=== PATIENT | female | born 1990 | race Two or more races ===

== ENCOUNTER 2018-01-03 04:10 | Inpatient (IN) | payer MEDICAID ==
[~2018-01-03] VITALS: Ht 167.6 cm; Wt 80.0 kg
[2018-01-03 04:55] LABS: BASOPHILS % (AUTO) 0.2 % (0-1); EOSINOPHILS # (AUTO) 0.1 X10'3 (0-0.9); EOSINOPHILS % (AUTO) 0.9 % (0-6); HEMATOCRIT 39.9 % (35.0-45.0); HEMOGLOBIN 13.1 g/dl (12.0-16.0); LYMPHOCYTES # (AUTO) 1.2 X10'3 (1.1-4.8); MEAN CORPUSCULAR HEMOGLOBIN 28.4 PG (27.0-31.0); MEAN CORPUSCULAR HGB CONC 32.8 % (33.0-36.5); MEAN CORPUSCULAR VOLUME 86.6 FL (78-98); MEAN PLATELET VOLUME 11.9 FL (7.4-10.4); MONOCYTES # (AUTO) 0.3 X10'3 (0-0.9); MONOCYTES % (AUTO) 3.4 % (2-12); NEUTROPHILS # (AUTO) 7.4 X10'3 (1.8-7.7); NEUTROPHILS % (AUTO) 82.5 % (42-75); PLATELET COUNT 279 X10'3 (140-440); RED CELL DISTRIBUTION WIDTH 16.8 % (11.5-14.5); WHITE BLOOD COUNT 8.9 X10'3 (4.5-11.0)
[2018-01-03] MEDS ORDERED: normal saline 1000ML IV soln IVB ONE (05:10)
[2018-01-03] MEDS ORDERED: morphine 4 MG/ML inj SYRINge IV ONE (05:10)
[2018-01-03] MEDS ORDERED: ketorolac tromethamine 15mg/ml inj. IV ONE (05:10)
[2018-01-03] MEDS ORDERED: metoclopramide 5 mg/ml inj IV ONE (05:10)
[2018-01-03] MEDS ORDERED: haloperidol lactate 5mg/ml inj IM ONE (05:10)
[2018-01-03 05:11] LABS: ALANINE AMINOTRANSFERASE 17 U/L (12-78); ALBUMIN 4.2 G/DL (3.4-5.0); ALKALINE PHOSPHATASE 118 IU/L (46-116); ANION GAP 23 (8-16); ASPARTATE AMINO TRANSFERASE 13 U/L (10-37); BILIRUBIN,TOTAL 0.6 MG/DL (0.1-1.0); BLOOD UREA NITROGEN 13 MG/DL (7-18); BUN/CREATININE RATIO 15.9 (6.6-38.0); CALCIUM 9.1 MG/DL (8.5-10.1); CHLORIDE 97 MMOL/L (99-107); CREATININE 0.82 MG/DL (0.40-0.90); ETHANOL < 0.010 GM/DL (0.0-0.010); GLUCOSE 359 MG/DL (70-104); INR 1.2 INR; LIPASE 71 U/L (73-393); MAGNESIUM 1.8 MG/DL (1.5-2.4); POTASSIUM 3.2 MMOL/L (3.5-5.1); PROTHROMBIN TIME 11.9 SECONDS (9.0-12.0); SODIUM 135 MMOL/L (135-145); TOTAL PROTEIN 8.5 G/DL (6.4-8.2); eGFR 84 ML/MIN
[2018-01-03 05:14] LABS: TOTAL CARBON DIOXIDE 14.6 MMOL/L (24-32)
[2018-01-03 05:23] LABS: URINE HCG NEGATIVE (NEG)
[2018-01-03 05:29] LABS: CLARITY,URINE CLEAR (Clear); COLOR,URINE YELLOW (Yellow); GLUCOSE, URINE 500 mg/dl (Neg); KETONES,URINE >=80 mg/dl (Neg); LEUKOCYTE ESTERASE ,URINE NEGATIVE (Neg); NITRITES, URINE NEGATIVE (Neg); OCCULT BLOOD,URINE NEGATIVE (Neg); PROTEIN,URINE TRACE mg/dl (Neg); UROBILINOGEN,URINE 0.2 E.U/dL (0.2-1.0)
[2018-01-03 05:34] LABS: UA COLLECTION TYPE CLN CATCH MIDSTREAM
[2018-01-03 05:35] LABS: BACTERIA,URINE FEW /HPF (Neg); RBC,URINE 0-2 /HPF (0-2); SQUAMOUS EPITHELIAL CELL,UR FEW /LPF (FEW); WBC,URINE 0-4 /HPF (0-4); YEAST FEW /HPF (NEGATIVE)
[2018-01-03 05:42] LABS: URINE AMPHETAMINE SCREEN NEGATIVE (Neg); URINE BARBITUATE SCREEN NEGATIVE (Neg); URINE BENZODIAZEPINES SCREEN NEGATIVE (Neg); URINE CANNABINOID SCREEN POSITIVE (Neg); URINE COCAINE SCREEN NEGATIVE (Neg); URINE METHADONE SCREEN NEGATIVE (Neg); URINE OPIATE SCREEN NEGATIVE (Neg); URINE PHENCYCLIDINE SCREEN NEGATIVE (Neg)
[2018-01-03] MEDS ORDERED: insulin regular, human 100 UNIT in normal saline 100ml IV soln 100 ML IV PRN ×2 (05:45)
[2018-01-03] MEDS ORDERED: insulin R INFUSION 1 ML IV ONE (05:57)
[2018-01-03] MEDS ORDERED: diphenhydrAMINE 50 mg/ml inj IV ONE (06:00)
[2018-01-03] MEDS ORDERED: potassium Cl 10 mEq/100mL bag IV ONE ×3 (06:00→07:00)
[2018-01-03 06:06] LABS: ABG BASE EXCESS -10.6 mmol/L (-2.0-3.0); ABG HCO3 11.5 mmol/L (22.0-26.0); ABG PCO2 (T) 18.4 mmHg (32.0-45.0); ABG PH (T) 7.414 (7.350-7.450); FCOHb 0.7 % (0.5-1.5); FMetHb 0.1 % (0.3-1.12); FO2Hb 97.2 % (94-100); PATIENT TEMPERATURE 37.3; TOTAL HEMOGLOBIN 12.3 G/dl (12.0-16.0)
[2018-01-03] MEDS ORDERED: normal saline 1000ml 1,000 ML IV SCH ×2 (06:07→06:17)
[2018-01-03] MEDS ORDERED: magnesium hydroxide 30ml (MOM) UD suspension PO PRN (06:10)
[2018-01-03] MEDS ORDERED: mag hydrox/Alum hydrox/simeth 30ml oral suspension PO PRN (06:10)
[2018-01-03] MEDS ORDERED: diphenhydrAMINE 25mg capsule PO PRN (06:10)
[2018-01-03] MEDS ORDERED: acetaminophen 325mg tablet PO PRN ×2 (06:10)
[2018-01-03] MEDS ORDERED: sodium bicarbonate (8.4%) inj. 50 MEQ in sodium chloride 0.45% 500ml 250 ML IV PRN (06:17)
[2018-01-03] MEDS ORDERED: sodium bicarbonate (8.4%) inj. 100 MEQ in sodium chloride 0.45% 500ml 500 ML IV PRN (06:17)
[2018-01-03] MEDS ORDERED: potassium Cl 20 mEq SR tablet PO PRN (06:20)
[2018-01-03] MEDS ORDERED: sodium phosphate inj. 30 MMOL in dextrose 5%-water 250 ML IV PRN (06:20)
[2018-01-03] MEDS ORDERED: Neutra Phos packet PO PRN (06:20)
[2018-01-03] MEDS ORDERED: potassium Cl 40MEQ/NS 500ml 500 ML IV PRN ×2 (06:20)
[2018-01-03] MEDS ORDERED: sodium phosphate inj. 15 MMOL in dextrose 5%-water 150 ML IV PRN (06:20)
[2018-01-03] MEDS: normal saline 1000ml 1,000 ML IV SCH ×3 (06:35→22:16)
[2018-01-03] MEDS: insulin regular, DKA only 100 UNIT in normal saline 100ml IV soln 99 ML IV SCH ×2 (06:44)
[2018-01-03 07:15] VITALS: BP 123/80
[2018-01-03] MEDS: potassium CL 20mEq in D5-1/2NS 1,000 ML IV PRN ×2 (07:43→18:37)
[2018-01-03] MEDS ORDERED: K and/or MAG REPLACEMENT MC SCH (08:00)
[2018-01-03] MEDS: LORazepam 2 mg/ml vial IV ONE ×2 (08:22→09:23)
[2018-01-03] MEDS: K and/or MAG REPLACEMENT MC SCH (08:25)
[2018-01-03] MEDS: metoclopramide 5 mg/ml inj IV PRN (08:58)
[2018-01-03] MEDS: enoxaparin 40mg/0.4ml syringe SQ SCH (09:02)
[2018-01-03 10:04] LABS: HCG SERUM QL NEGATIVE
[2018-01-03 10:12] LABS: ALBUMIN 3.5 G/DL (3.4-5.0); ANION GAP 16 (8-16); BLOOD UREA NITROGEN 14 MG/DL (7-18); CALCIUM 7.9 MG/DL (8.5-10.1); CHLORIDE 104 MMOL/L (99-107); GLUCOSE 216 MG/DL (70-104); SODIUM 136 MMOL/L (135-145); TOTAL CARBON DIOXIDE 16.3 MMOL/L (24-32); eGFR > 90 ML/MIN
[2018-01-03 11:00] VITALS: BP 108/67
[2018-01-03 15:00] VITALS: BP 139/91
[2018-01-03 15:40] LABS: ALBUMIN 2.9 G/DL (3.4-5.0); ANION GAP 11 (8-16); BLOOD UREA NITROGEN 13 MG/DL (7-18); BUN/CREATININE RATIO 20.6 (6.6-38.0); CALCIUM 7.6 MG/DL (8.5-10.1); CHLORIDE 110 MMOL/L (99-107); CREATININE 0.63 MG/DL (0.40-0.90); GLUCOSE 96 MG/DL (70-104); POTASSIUM 3.3 MMOL/L (3.5-5.1); SODIUM 142 MMOL/L (135-145); TOTAL CARBON DIOXIDE 20.8 MMOL/L (24-32); eGFR > 90 ML/MIN
[2018-01-03] MEDS ORDERED: glucagon, human recombinant 1mg kit SUBCUT PRN (17:50)
[2018-01-03] MEDS ORDERED: dextrose ORAL solution 15 GM/59 ML bottle PO PRN ×2 (17:50)
[2018-01-03] MEDS ORDERED: MESSAGE TO PHARMACY PO ONE (17:50)
[2018-01-03] MEDS ORDERED: dextrose 50%-water 50ml dispensing syringe IV PRN ×2 (17:50)
[2018-01-03] MEDS: potassium Cl 20 mEq SR tablet PO PRN (17:59)
[2018-01-03] MEDS: insulin Lispro (HumaLOG) vial - multi-dose SQ SCH (18:03)
[2018-01-03 19:00] VITALS: BP 128/80
[2018-01-03] MEDS ORDERED: insulin glargine (Lantus) pen - multi-dose SQ SCH (21:00)
[2018-01-03 21:40] LABS: ALANINE AMINOTRANSFERASE 18 U/L (12-78); ALBUMIN 2.7 G/DL (3.4-5.0); ALBUMIN/GLOBULIN RATIO 0.8 (1.1-1.5); ALKALINE PHOSPHATASE 73 IU/L (46-116); ANION GAP 9 (8-16); ASPARTATE AMINO TRANSFERASE 9 U/L (10-37); BILIRUBIN,TOTAL 0.3 MG/DL (0.1-1.0); BLOOD UREA NITROGEN 11 MG/DL (7-18); CALCIUM 7.8 MG/DL (8.5-10.1); CHLORIDE 107 MMOL/L (99-107); CREATININE 0.61 MG/DL (0.40-0.90); GLUCOSE 206 MG/DL (70-104); PHOSPHORUS 2.5 MG/DL (2.3-4.5); POTASSIUM 3.1 MMOL/L (3.5-5.1); SODIUM 137 MMOL/L (135-145); TOTAL CARBON DIOXIDE 21.4 MMOL/L (24-32); TOTAL PROTEIN 5.9 G/DL (6.4-8.2); eGFR > 90 ML/MIN
[2018-01-03] MEDS: nicotine 21mg patch - 24 hr TD SCH (22:22)
[2018-01-03] MEDS: potassium Cl oral solution 20 MEQ/15 ML PO PRN (22:23)
[2018-01-03 23:00] VITALS: BP 124/77
[2018-01-04] MEDS: insulin Lispro (HumaLOG) vial - multi-dose SQ SCH ×3 (00:59→13:05)
[2018-01-04] MEDS: potassium Cl oral solution 20 MEQ/15 ML PO PRN ×2 (01:52→15:49)
[2018-01-04 02:00] VITALS: BP 125/87
[2018-01-04] MEDS: insulin regular, DKA only 100 UNIT in normal saline 100ml IV soln 99 ML IV SCH ×2 (02:17)
[2018-01-04] MEDS: metoclopramide 5 mg/ml inj IV PRN (04:17)
[2018-01-04] MEDS: normal saline 1000ml 1,000 ML IV SCH ×2 (04:54→11:20)
[2018-01-04] MEDS: HYDROmorphone 1 mg/ml syringe IV PRN ×2 (05:17→14:42)
[2018-01-04] MEDS ORDERED: ketorolac tromethamine 15mg/ml inj. IV ONE (05:55)
[2018-01-04 06:51] LABS: BASOPHILS % (AUTO) 0.3 % (0-1); EOSINOPHILS # (AUTO) 0.1 X10'3 (0-0.9); EOSINOPHILS % (AUTO) 2.4 % (0-6); HEMATOCRIT 33.2 % (35.0-45.0); HEMOGLOBIN 10.7 g/dl (12.0-16.0); LYMPHOCYTES # (AUTO) 1.3 X10'3 (1.1-4.8); LYMPHOCYTES % (AUTO) 25.3 % (21-51); MEAN CORPUSCULAR HGB CONC 32.2 % (33.0-36.5); MEAN CORPUSCULAR VOLUME 86.8 FL (78-98); MEAN PLATELET VOLUME 11.8 FL (7.4-10.4); MONOCYTES # (AUTO) 0.3 X10'3 (0-0.9); MONOCYTES % (AUTO) 6.7 % (2-12); NEUTROPHILS # (AUTO) 3.3 X10'3 (1.8-7.7); NEUTROPHILS % (AUTO) 65.3 % (42-75); PLATELET COUNT 194 X10'3 (140-440); RED BLOOD COUNT 3.82 X10'6 (4.20-5.60); RED CELL DISTRIBUTION WIDTH 16.1 % (11.5-14.5); WHITE BLOOD COUNT 5.1 X10'3 (4.5-11.0)
[2018-01-04 07:00] VITALS: BP 147/99
[2018-01-04 07:29] LABS: ALBUMIN 2.9 G/DL (3.4-5.0); ANION GAP 10 (8-16); BLOOD UREA NITROGEN 8 MG/DL (7-18); BUN/CREATININE RATIO 15.4 (6.6-38.0); CALCIUM 7.9 MG/DL (8.5-10.1); CHLORIDE 105 MMOL/L (99-107); CREATININE 0.52 MG/DL (0.40-0.90); GLUCOSE 251 MG/DL (70-104); PHOSPHORUS 2.5 MG/DL (2.3-4.5); POTASSIUM 3.1 MMOL/L (3.5-5.1); SODIUM 136 MMOL/L (135-145); eGFR > 90 ML/MIN
[2018-01-04] MEDS: K and/or MAG REPLACEMENT MC SCH (08:00)
[2018-01-04 08:04] LABS: LARGE PLATELETS FEW; PLATELET ESTIMATE NORMAL
[2018-01-04] MEDS: potassium Cl 20 mEq SR tablet PO PRN (09:36)
[2018-01-04] MEDS: enoxaparin 40mg/0.4ml syringe SQ SCH (09:37)
[2018-01-04] MEDS: nicotine 21mg patch - 24 hr TD SCH (09:37)
[2018-01-04] MEDS ORDERED: pantoprazole 40 MG vial IV ONE (10:30)
[2018-01-04 15:00] VITALS: BP 137/89
[2018-01-05] MEDS ORDERED: pantoprazole 40 MG vial IV SCH (08:00)
[2018-01-05] MEDS ORDERED: HUM100IN (14:55)
[2018-01-05] MEDS ORDERED: RANI150T8 PO (14:55)
[2018-01-05] MEDS ORDERED: ONDA4TAB12 PO (14:55)
[2018-01-05] MEDS ORDERED: INSU100I8 SQ (14:55)
== END 2018-01-04 18:45 | disposition left against medical advice (07) | DRG 420 ==
LOC: ER 04:11 → ED HOLD 06:07 → PCU 3S 07:55
PROVIDERS: ADMIT Internal Medicine; ATTEND Family Medicine
DX: E10.10 Type 1 diabetes mellitus with ketoacidosis without coma (principal); E83.39 Other disorders of phosphorus metabolism; I10 Essential (primary) hypertension; F32.9 Major depressive disorder, single episode, unspecified; F43.10 Post-traumatic stress disorder, unspecified; F17.210 Nicotine dependence, cigarettes, uncomplicated; F12.90 Cannabis use, unspecified, uncomplicated; F41.9 Anxiety disorder, unspecified; K31.89 Other diseases of stomach and duodenum; E87.6 Hypokalemia; L29.9 Pruritus, unspecified; K29.70 Gastritis, unspecified, without bleeding; R11.2 Nausea with vomiting, unspecified; Z98.891 History of uterine scar from previous surgery; Z88.0 Allergy status to penicillin
CPT/HCPCS: 36415; 36600; 74176; 80048; 80053; 80305; 80320; 81001; 81025; 82803; 82948; 83036; 83690; 83735; 84100; 84703; 85018; 85025; 85610; 96372; 96374; 96375; 99285; C9113; J1170; J1200; J1630; J1650; J1815; J1885; J2060; J2270; J2765; J3480; J7030; J7060; Q0163

== ENCOUNTER 2018-01-05 12:47 | Inpatient (IN) | payer MEDICAID ==
[~2018-01-05] VITALS: Ht 167.6 cm; Wt 82.0 kg
[2018-01-05] MEDS ORDERED: metoclopramide 5 mg/ml inj IV ONE (13:25)
[2018-01-05] MEDS ORDERED: normal saline 1000ML IV soln IVB ONE (13:25)
[2018-01-05 13:35] LABS: ALANINE AMINOTRANSFERASE 16 U/L (12-78); ALBUMIN 3.4 G/DL (3.4-5.0); ALKALINE PHOSPHATASE 84 IU/L (46-116); ANION GAP 17 (8-16); ASPARTATE AMINO TRANSFERASE 7 U/L (10-37); BILIRUBIN,TOTAL 0.5 MG/DL (0.1-1.0); BLOOD UREA NITROGEN 7 MG/DL (7-18); BUN/CREATININE RATIO 13.7 (6.6-38.0); CALCIUM 8.6 MG/DL (8.5-10.1); CHLORIDE 100 MMOL/L (99-107); CREATININE 0.51 MG/DL (0.40-0.90); GLUCOSE 257 MG/DL (70-104); SODIUM 139 MMOL/L (135-145); TOTAL CARBON DIOXIDE 21.6 MMOL/L (24-32); TOTAL PROTEIN 6.8 G/DL (6.4-8.2); eGFR > 90 ML/MIN
[2018-01-05 13:36] LABS: POTASSIUM 2.7 MMOL/L (3.5-5.1)
[2018-01-05 13:45] LABS: ABG BASE EXCESS -2.7 mmol/L (-2.0-3.0); ABG HCO3 20.3 mmol/L (22.0-26.0); ABG OXYGEN SATURATION 96.8 % (95-98); ABG PCO2 (T) 29.9 mmHg (32.0-45.0); ABG PO2 (T) 88.9 mmHg (83-108); ALLEN'S TEST Positive; FCOHb 1.8 % (0.5-1.5); FMetHb 0.1 % (0.3-1.12); TOTAL HEMOGLOBIN 11.9 G/dl (12.0-16.0)
[2018-01-05] MEDS ORDERED: potassium Cl 20 mEq SR tablet PO ONE (13:50)
[2018-01-05] MEDS ORDERED: morphine 4 MG/ML inj SYRINge IV ONE (14:05)
[2018-01-05] MEDS: magnesium 1gm/100ml D5W IVPB 100 ML IV SCH ×2 (14:06→15:05)
[2018-01-05] MEDS: potassium 10mEq/100ml NS w/LIDOcaine (10mg/bag) IV SCH ×2 (14:07→17:57)
[2018-01-05] MEDS ORDERED: normal saline 1000ml 1,000 ML IV ONE (14:40)
[2018-01-05] MEDS ORDERED: HUM100IN (14:55)
[2018-01-05] MEDS ORDERED: INSU100I8 SQ (14:55)
[2018-01-05] MEDS ORDERED: RANI150T8 PO (14:55)
[2018-01-05] MEDS ORDERED: ONDA4TAB12 PO (14:55)
[2018-01-05 15:03] LABS: MAGNESIUM 1.8 MG/DL (1.5-2.4); PHOSPHORUS 3.2 MG/DL (2.3-4.5)
[2018-01-05] MEDS ORDERED: mag hydrox/Alum hydrox/simeth 30ml oral suspension PO PRN (15:45)
[2018-01-05] MEDS ORDERED: metoclopramide 5 mg/ml inj IV PRN (15:45)
[2018-01-05] MEDS ORDERED: HYDROcodone/acetaminophen 5mg/325mg tablet PO PRN (15:45)
[2018-01-05] MEDS ORDERED: dextrose 50%-water 50ml dispensing syringe IV PRN ×2 (15:45)
[2018-01-05] MEDS ORDERED: diphenhydrAMINE 50 mg/ml inj IV PRN (15:45)
[2018-01-05] MEDS ORDERED: MESSAGE TO PHARMACY PO ONE (15:45)
[2018-01-05] MEDS ORDERED: HYDROmorphone inj. 0.5 MG/0.5 ML DISP.SYRIN IV PRN ×2 (15:45)
[2018-01-05] MEDS ORDERED: acetaminophen 650mg rectal suppository RC PRN (15:45)
[2018-01-05] MEDS ORDERED: naloxone 0.4 mg/ml inj IV PRN (15:45)
[2018-01-05] MEDS ORDERED: dextrose ORAL solution 15 GM/59 ML bottle PO PRN ×2 (15:45)
[2018-01-05] MEDS ORDERED: magnesium hydroxide 30ml (MOM) UD suspension PO PRN (15:45)
[2018-01-05] MEDS ORDERED: potassium Cl 40MEQ/NS 500ml 500 ML IV PRN (15:45)
[2018-01-05] MEDS ORDERED: potassium Cl 20 mEq SR tablet PO PRN ×2 (15:45)
[2018-01-05] MEDS ORDERED: diphenhydrAMINE 25mg capsule PO PRN (15:45)
[2018-01-05] MEDS ORDERED: bisacodyl 10mg suppository rectal RC PRN (15:45)
[2018-01-05] MEDS ORDERED: CADD PCA waste documentation MC PRN (15:45)
[2018-01-05] MEDS ORDERED: morphine 4 MG/ML inj SYRINge IV PRN (15:45)
[2018-01-05] MEDS ORDERED: glucagon, human recombinant 1mg kit SUBCUT PRN (15:45)
[2018-01-05] MEDS ORDERED: acetaminophen 325mg tablet PO PRN ×2 (15:45)
[2018-01-05 16:36] LABS: URINE HCG NEGATIVE (NEG)
[2018-01-05 16:43] LABS: CLARITY,URINE SLIGHTLY CLOUDY (Clear); COLOR,URINE STRAW (Yellow); GLUCOSE, URINE >=1000 mg/dl (Neg); KETONES,URINE >=80 mg/dl (Neg); LEUKOCYTE ESTERASE ,URINE NEGATIVE (Neg); NITRITES, URINE NEGATIVE (Neg); OCCULT BLOOD,URINE NEGATIVE (Neg); PROTEIN,URINE NEGATIVE (Neg); UROBILINOGEN,URINE 0.2 E.U/dL (0.2-1.0)
[2018-01-05 16:45] LABS: URINE AMPHETAMINE SCREEN NEGATIVE (Neg); URINE BARBITUATE SCREEN NEGATIVE (Neg); URINE BENZODIAZEPINES SCREEN NEGATIVE (Neg); URINE CANNABINOID SCREEN POSITIVE (Neg); URINE COCAINE SCREEN NEGATIVE (Neg); URINE METHADONE SCREEN NEGATIVE (Neg); URINE OPIATE SCREEN POSITIVE (Neg); URINE PHENCYCLIDINE SCREEN NEGATIVE (Neg)
[2018-01-05 16:46] LABS: UA COLLECTION TYPE CLN CATCH MIDSTREAM
[2018-01-05 16:56] LABS: LIPASE 75 U/L (73-393)
[2018-01-05 17:00] LABS: BACTERIA,URINE NONE SEEN /HPF (Neg); MUCUS STRANDS FEW /LPF (Neg); RBC,URINE NONE SEEN /HPF (0-2); SQUAMOUS EPITHELIAL CELL,UR FEW /LPF (FEW); WBC,URINE 0-4 /HPF (0-4)
[2018-01-05 17:08] LABS: BASOPHILS % (AUTO) 0.5 % (0-1); EOSINOPHILS % (AUTO) 0.8 % (0-6); HEMOGLOBIN 11.1 g/dl (12.0-16.0); LYMPHOCYTES # (AUTO) 1.7 X10'3 (1.1-4.8); LYMPHOCYTES % (AUTO) 30.8 % (21-51); MEAN CORPUSCULAR HEMOGLOBIN 27.9 PG (27.0-31.0); MEAN CORPUSCULAR HGB CONC 32.5 % (33.0-36.5); MEAN CORPUSCULAR VOLUME 85.7 FL (78-98); MEAN PLATELET VOLUME 10.8 FL (7.4-10.4); MONOCYTES # (AUTO) 0.5 X10'3 (0-0.9); MONOCYTES % (AUTO) 9.2 % (2-12); NEUTROPHILS # (AUTO) 3.2 X10'3 (1.8-7.7); NEUTROPHILS % (AUTO) 58.7 % (42-75); PLATELET COUNT 221 X10'3 (140-440); RED BLOOD COUNT 3.97 X10'6 (4.20-5.60); RED CELL DISTRIBUTION WIDTH 16.4 % (11.5-14.5); WHITE BLOOD COUNT 5.4 X10'3 (4.5-11.0)
[2018-01-05 17:46] LABS: OSMOLALITY 295 MOSM/K (280-300)
[2018-01-05] MEDS: HYDROcodone/acetaminophen 10/325mg tab PO PRN (17:58)
[2018-01-05] MEDS: normal saline 1000ml 1,000 ML IV SCH ×2 (18:03→20:19)
[2018-01-05] MEDS: morphine 4 MG/ML inj SYRINge IV PRN (18:05)
[2018-01-05 19:30] VITALS: BP 129/85
[2018-01-05] MEDS: docusate sod 100mg capsule PO SCH (20:18)
[2018-01-05] MEDS: heparin, porcine 5000 units/ml vial SQ SCH (20:19)
[2018-01-05] MEDS: pantoprazole 40 MG vial IV SCH (20:20)
[2018-01-05] MEDS ORDERED: temazepam 15mg capsule PO PRN (21:00)
[2018-01-05 23:30] VITALS: BP 120/67
[2018-01-06] MEDS: normal saline 1000ml 1,000 ML IV SCH ×2 (00:30→05:09)
[2018-01-06] MEDS: HYDROcodone/acetaminophen 10/325mg tab PO PRN (00:55)
[2018-01-06 05:15] LABS: ALANINE AMINOTRANSFERASE 15 U/L (12-78); ALBUMIN 2.7 G/DL (3.4-5.0); ALBUMIN/GLOBULIN RATIO 0.9 (1.1-1.5); ALKALINE PHOSPHATASE 66 IU/L (46-116); ANION GAP 13 (8-16); ASPARTATE AMINO TRANSFERASE 7 U/L (10-37); BILIRUBIN,TOTAL 0.3 MG/DL (0.1-1.0); BLOOD UREA NITROGEN 5 MG/DL (7-18); BUN/CREATININE RATIO 11.6 (6.6-38.0); CALCIUM 7.9 MG/DL (8.5-10.1); CHLORIDE 103 MMOL/L (99-107); CREATININE 0.43 MG/DL (0.40-0.90); GLUCOSE 206 MG/DL (70-104); SODIUM 138 MMOL/L (135-145); TOTAL CARBON DIOXIDE 22.3 MMOL/L (24-32); TOTAL PROTEIN 5.7 G/DL (6.4-8.2); eGFR > 90 ML/MIN
[2018-01-06 05:21] LABS: POTASSIUM 2.9 MMOL/L (3.5-5.1)
[2018-01-06] MEDS: morphine 4 MG/ML inj SYRINge IV PRN ×3 (05:50→18:30)
[2018-01-06] MEDS: ondansetron/PF 4mg/2ml inj IV PRN (05:54)
[2018-01-06 07:13] VITALS: BP 178/111
[2018-01-06] MEDS: K and/or MAG REPLACEMENT MC SCH (08:00)
[2018-01-06] MEDS: docusate sod 100mg capsule PO SCH ×2 (08:00→20:55)
[2018-01-06] MEDS: pantoprazole 40 MG vial IV SCH ×2 (08:41→20:54)
[2018-01-06] MEDS: heparin, porcine 5000 units/ml vial SQ SCH ×2 (08:48→20:55)
[2018-01-06 09:00] VITALS: BP 135/78
[2018-01-06 11:29] VITALS: BP 126/84
[2018-01-06] MEDS: metoclopramide 5 mg/ml inj IV SCH ×3 (13:13→20:55)
[2018-01-06 14:25] LABS: BASOPHILS % (AUTO) 0.4 % (0-1); EOSINOPHILS # (AUTO) 0.1 X10'3 (0-0.9); EOSINOPHILS % (AUTO) 1.1 % (0-6); HEMOGLOBIN 12.5 g/dl (12.0-16.0); LYMPHOCYTES # (AUTO) 1.7 X10'3 (1.1-4.8); LYMPHOCYTES % (AUTO) 28.6 % (21-51); MEAN CORPUSCULAR HEMOGLOBIN 28.2 PG (27.0-31.0); MEAN CORPUSCULAR HGB CONC 32.9 % (33.0-36.5); MEAN CORPUSCULAR VOLUME 85.9 FL (78-98); MEAN PLATELET VOLUME 11.7 FL (7.4-10.4); MONOCYTES # (AUTO) 0.4 X10'3 (0-0.9); MONOCYTES % (AUTO) 5.8 % (2-12); NEUTROPHILS # (AUTO) 3.9 X10'3 (1.8-7.7); NEUTROPHILS % (AUTO) 64.1 % (42-75); PLATELET COUNT 222 X10'3 (140-440); RED BLOOD COUNT 4.43 X10'6 (4.20-5.60); RED CELL DISTRIBUTION WIDTH 16.3 % (11.5-14.5); WHITE BLOOD COUNT 6.1 X10'3 (4.5-11.0)
[2018-01-06] MEDS: insulin Lispro (HumaLOG) vial - multi-dose SQ SCH (14:41)
[2018-01-06 15:36] LABS: LARGE PLATELETS FEW; PLATELET ESTIMATE NORMAL
[2018-01-06] MEDS: potassium Cl 40MEQ/NS 500ml 500 ML IV PRN ×2 (16:35→21:43)
[2018-01-06 19:40] VITALS: BP 127/71
[2018-01-07 00:10] VITALS: BP 114/75
[2018-01-07] MEDS: morphine 4 MG/ML inj SYRINge IV PRN ×2 (02:13→07:44)
[2018-01-07] MEDS: ondansetron/PF 4mg/2ml inj IV PRN (05:03)
[2018-01-07] MEDS: HYDROcodone/acetaminophen 10/325mg tab PO PRN (05:52)
[2018-01-07 06:08] LABS: BASOPHILS % (AUTO) 0.3 % (0-1); EOSINOPHILS # (AUTO) 0.1 X10'3 (0-0.9); EOSINOPHILS % (AUTO) 1.6 % (0-6); HEMATOCRIT 35.5 % (35.0-45.0); HEMOGLOBIN 11.6 g/dl (12.0-16.0); LYMPHOCYTES # (AUTO) 1.7 X10'3 (1.1-4.8); LYMPHOCYTES % (AUTO) 32.5 % (21-51); MEAN CORPUSCULAR HEMOGLOBIN 28.4 PG (27.0-31.0); MEAN CORPUSCULAR HGB CONC 32.7 % (33.0-36.5); MEAN CORPUSCULAR VOLUME 86.7 FL (78-98); MEAN PLATELET VOLUME 10.7 FL (7.4-10.4); MONOCYTES # (AUTO) 0.4 X10'3 (0-0.9); MONOCYTES % (AUTO) 8.3 % (2-12); NEUTROPHILS # (AUTO) 2.9 X10'3 (1.8-7.7); NEUTROPHILS % (AUTO) 57.3 % (42-75); PLATELET COUNT 199 X10'3 (140-440); RED BLOOD COUNT 4.09 X10'6 (4.20-5.60); RED CELL DISTRIBUTION WIDTH 16.3 % (11.5-14.5); WHITE BLOOD COUNT 5.1 X10'3 (4.5-11.0)
[2018-01-07 06:20] LABS: ALANINE AMINOTRANSFERASE 17 U/L (12-78); ALBUMIN 3.1 G/DL (3.4-5.0); ALBUMIN/GLOBULIN RATIO 0.9 (1.1-1.5); ALKALINE PHOSPHATASE 83 IU/L (46-116); ANION GAP 16 (8-16); ASPARTATE AMINO TRANSFERASE 13 U/L (10-37); BILIRUBIN,TOTAL 0.4 MG/DL (0.1-1.0); BLOOD UREA NITROGEN 5 MG/DL (7-18); BUN/CREATININE RATIO 9.4 (6.6-38.0); CALCIUM 8.7 MG/DL (8.5-10.1); CHLORIDE 100 MMOL/L (99-107); CREATININE 0.53 MG/DL (0.40-0.90); GLUCOSE 258 MG/DL (70-104); SODIUM 136 MMOL/L (135-145); TOTAL CARBON DIOXIDE 19.7 MMOL/L (24-32); TOTAL PROTEIN 6.5 G/DL (6.4-8.2); eGFR > 90 ML/MIN
[2018-01-07 07:07] LABS: LARGE PLATELETS FEW; PLATELET ESTIMATE NORMAL
[2018-01-07] MEDS: normal saline 1000ml 1,000 ML IV SCH (07:18)
[2018-01-07 07:30] VITALS: BP 160/99
[2018-01-07] MEDS: metoclopramide 5 mg/ml inj IV SCH (07:31)
[2018-01-07] MEDS: heparin, porcine 5000 units/ml vial SQ SCH (07:35)
[2018-01-07] MEDS: pantoprazole 40 MG vial IV SCH (07:39)
[2018-01-07] MEDS: potassium Cl 40MEQ/NS 500ml 500 ML IV PRN (07:46)
[2018-01-07] MEDS: insulin Lispro (HumaLOG) vial - multi-dose SQ SCH (07:54)
[2018-01-07] MEDS: docusate sod 100mg capsule PO SCH (07:54)
[2018-01-07] MEDS: K and/or MAG REPLACEMENT MC SCH (07:55)
[2018-01-07 09:52] LABS: MAGNESIUM 1.6 MG/DL (1.5-2.4)
[2018-01-07] MEDS ORDERED: HYDR-3972 PO (10:17)
[2018-01-07 12:00] VITALS: BP 114/78
== END 2018-01-07 12:00 | disposition home or self-care (01) | DRG 48 ==
LOC: ER 12:48 → ED HOLD 15:41 → SUR 3N 19:20
PROVIDERS: ADMIT Family Medicine; ATTEND Internal Medicine
DX: E10.43 Type 1 diabetes mellitus with diabetic autonomic (poly)neuropathy (principal); E10.65 Type 1 diabetes mellitus with hyperglycemia; I10 Essential (primary) hypertension; D64.9 Anemia, unspecified; K31.84 Gastroparesis; E86.0 Dehydration; E87.6 Hypokalemia; F12.10 Cannabis abuse, uncomplicated; G43.A1 Cyclical vomiting, in migraine, intractable; F43.10 Post-traumatic stress disorder, unspecified; F17.200 Nicotine dependence, unspecified, uncomplicated; Z79.4 Long term (current) use of insulin; Z82.49 Family history of ischemic heart disease and other diseases of the circulatory system; Z98.891 History of uterine scar from previous surgery; Z88.0 Allergy status to penicillin
CPT/HCPCS: 36415; 36600; 80053; 80305; 81001; 81025; 82803; 82948; 83605; 83690; 83735; 83880; 83930; 84100; 84145; 84443; 85018; 85025; 87070; 96361; 96365; 96366; 96375; 99285; A6257; A6258; C9113; J1644; J2270; J2405; J2765; J3480; J7030

== ENCOUNTER 2018-02-20 09:49 | Emergency (ER) | payer MEDICARE, MEDICAID ==
[~2018-02-20] VITALS: Ht 167.6 cm; Wt 87.0 kg
[~2018-02-20 09:49] MED LIST: HUM100IN; HYDR-3972 PO; INSU100I8 SQ; ONDA4TAB12 PO; RANI150T8 PO
[2018-02-20 10:00] VITALS: BP 127/78
[2018-02-20] MEDS ORDERED: CLIN300C85 PO (10:38)
[2018-02-20] MEDS ORDERED: ACET1TAB12 PO (10:38)
== END 2018-02-20 10:46 | disposition home or self-care (01) ==
LOC: ER 09:50
DX: K08.89 Other specified disorders of teeth and supporting structures (principal); E11.9 Type 2 diabetes mellitus without complications; F12.90 Cannabis use, unspecified, uncomplicated; Z98.890 Other specified postprocedural states; Z98.51 Tubal ligation status; Z88.0 Allergy status to penicillin
CPT/HCPCS: 99283

== ENCOUNTER 2018-02-25 16:38 | Emergency (ER) | payer MEDICARE, MEDICAID ==
[~2018-02-25] VITALS: Ht 167.6 cm; Wt 88.0 kg
[~2018-02-25 16:38] MED LIST changes: +ACET1TAB12 PO; +CLIN300C85 PO
[2018-02-25] MEDS ORDERED: ketorolac tromethamine 15mg/ml inj. IV ONE (20:00)
[2018-02-25] MEDS ORDERED: clindamycin 150mg capsule PO ONE (20:00)
[2018-02-25] MEDS ORDERED: iohexol 300mg/ml 100ml inj. ONE (20:07)
[2018-02-25] MEDS ORDERED: CLIN300C85 PO (20:13)
[2018-02-25] MEDS ORDERED: IBUP-1985 PO (20:13)
[2018-02-25] MEDS ORDERED: LORazepam 2 mg/ml vial IV ONE (20:40)
[2018-02-25 20:58] LABS: BASOPHILS % (AUTO) 0.9 % (0-1); EOSINOPHILS # (AUTO) 0.1 X10'3 (0-0.9); EOSINOPHILS % (AUTO) 1.3 % (0-6); HEMATOCRIT 33.4 % (35.0-45.0); HEMOGLOBIN 10.8 g/dl (12.0-16.0); LYMPHOCYTES # (AUTO) 1.9 X10'3 (1.1-4.8); LYMPHOCYTES % (AUTO) 35.5 % (21-51); MEAN CORPUSCULAR HEMOGLOBIN 27.2 PG (27.0-31.0); MEAN CORPUSCULAR HGB CONC 32.4 % (33.0-36.5); MEAN CORPUSCULAR VOLUME 84.1 FL (78-98); MEAN PLATELET VOLUME 12.1 FL (7.4-10.4); MONOCYTES # (AUTO) 0.4 X10'3 (0-0.9); MONOCYTES % (AUTO) 6.9 % (2-12); NEUTROPHILS % (AUTO) 55.4 % (42-75); PLATELET COUNT 222 X10'3 (140-440); RED BLOOD COUNT 3.97 X10'6 (4.20-5.60); RED CELL DISTRIBUTION WIDTH 17.9 % (11.5-14.5); WHITE BLOOD COUNT 5.3 X10'3 (4.5-11.0)
[2018-02-25 21:06] LABS: HCG SERUM QL NEGATIVE
[2018-02-25 21:20] LABS: ALANINE AMINOTRANSFERASE 20 U/L (12-78); ALBUMIN 3.5 G/DL (3.4-5.0); ALKALINE PHOSPHATASE 95 IU/L (46-116); ANION GAP 10 (8-16); ASPARTATE AMINO TRANSFERASE 6 U/L (10-37); BILIRUBIN,TOTAL 0.2 MG/DL (0.1-1.0); BLOOD UREA NITROGEN 19 MG/DL (7-18); BUN/CREATININE RATIO 27.9 (6.6-38.0); CALCIUM 8.6 MG/DL (8.5-10.1); CHLORIDE 102 MMOL/L (99-107); CREATININE 0.68 MG/DL (0.40-0.90); GLUCOSE 293 MG/DL (70-104); POTASSIUM 3.4 MMOL/L (3.5-5.1); SODIUM 138 MMOL/L (135-145); TOTAL CARBON DIOXIDE 26.2 MMOL/L (24-32); TOTAL PROTEIN 7.1 G/DL (6.4-8.2); eGFR > 90 ML/MIN
[2018-02-25 21:45] LABS: LARGE PLATELETS FEW; PLATELET ESTIMATE NORMAL
[2018-02-25 21:58] VITALS: BP 128/82
== END 2018-02-25 22:00 | disposition home or self-care (01) ==
LOC: ER 16:39
DX: S61.411A Laceration without foreign body of right hand, initial encounter (principal); S10.93XA Contusion of unspecified part of neck, initial encounter; S09.90XA Unspecified injury of head, initial encounter; E11.9 Type 2 diabetes mellitus without complications; F12.90 Cannabis use, unspecified, uncomplicated; Z98.51 Tubal ligation status; Z88.0 Allergy status to penicillin; Y04.8XXA Assault by other bodily force, initial encounter; Y93.89 Activity, other specified; Y92.89 Other specified places as the place of occurrence of the external cause; Y99.8 Other external cause status
CPT/HCPCS: 29125; 36415; 70450; 70491; 73130; 80053; 84703; 85025; 96374; 96375; 99285; J1885; J2060; J7030; Q9967

== ENCOUNTER 2018-04-19 10:15 | Emergency (ER) | payer MEDICARE, MEDICAID ==
[~2018-04-19] VITALS: Ht 167.6 cm; Wt 89.5 kg
[~2018-04-19 10:15] MED LIST changes: +IBUP-1985 PO
[2018-04-19 10:17] VITALS: BP 128/82
[2018-04-19] MEDS ORDERED: CLIN150C2 PO (10:37)
[2018-04-19] MEDS ORDERED: ACET-3067 PO (10:37)
[2018-04-19] MEDS ORDERED: HYDROcodone/acetaminophen 5mg/325mg tablet PO ONE (10:40)
[2018-04-19] MEDS ORDERED: TRAM50TA2 PO (11:02)
== END 2018-04-19 11:10 | disposition home or self-care (01) ==
LOC: ER 10:15
DX: K02.9 Dental caries, unspecified (principal); H92.09 Otalgia, unspecified ear; E11.9 Type 2 diabetes mellitus without complications; F12.90 Cannabis use, unspecified, uncomplicated; Z98.51 Tubal ligation status; Z98.890 Other specified postprocedural states; Z88.0 Allergy status to penicillin; Z79.2 Long term (current) use of antibiotics; Z79.899 Other long term (current) drug therapy
CPT/HCPCS: 99283

== ENCOUNTER 2018-05-19 20:12 | Emergency (ER) | payer MEDICARE, MEDICAID ==
[~2018-05-19] VITALS: Ht 167.6 cm; Wt 82.0 kg
[2018-05-19 20:22] VITALS: BP 127/79
[2018-05-19] MEDS ORDERED: PSEU120T55 PO (20:59)
[2018-05-19] MEDS ORDERED: IBUP-1986 PO (20:59)
== END 2018-05-19 21:33 | disposition home or self-care (01) ==
LOC: ER 20:12
DX: H65.91 Unspecified nonsuppurative otitis media, right ear (principal); J06.9 Acute upper respiratory infection, unspecified; E11.9 Type 2 diabetes mellitus without complications; F12.10 Cannabis abuse, uncomplicated; Z98.51 Tubal ligation status; Z88.0 Allergy status to penicillin; Z79.899 Other long term (current) drug therapy; Z87.891 Personal history of nicotine dependence
CPT/HCPCS: 99282

== ENCOUNTER 2018-08-12 19:18 | Emergency (ER) | payer MEDICARE, MEDICAID ==
[~2018-08-12] VITALS: Ht 167.6 cm; Wt 100.8 kg
[~2018-08-12 19:18] MED LIST changes: +CLIN-96 PO; -CLIN300C85 PO; +IBUP-1986 PO; +PSEU120T55 PO
[2018-08-12 20:45] LABS: ALANINE AMINOTRANSFERASE 22 U/L (12-78); ALBUMIN 4.3 G/DL (3.4-5.0); ALBUMIN/GLOBULIN RATIO 0.9 (1.1-1.5); ALKALINE PHOSPHATASE 104 IU/L (46-116); ANION GAP 18 (8-16); ASPARTATE AMINO TRANSFERASE 23 U/L (10-37); BILIRUBIN,TOTAL 0.3 MG/DL (0.1-1.0); BLOOD UREA NITROGEN 19 MG/DL (7-18); BUN/CREATININE RATIO 26.8 (6.6-38.0); CALCIUM 9.3 MG/DL (8.5-10.1); CHLORIDE 100 MMOL/L (99-107); CREATININE 0.71 MG/DL (0.40-0.90); GLUCOSE 349 MG/DL (70-104); POTASSIUM 4.1 MMOL/L (3.5-5.1); SODIUM 137 MMOL/L (135-145); TOTAL CARBON DIOXIDE 18.9 MMOL/L (24-32); TOTAL PROTEIN 8.9 G/DL (6.4-8.2); eGFR > 90 ML/MIN
[2018-08-12 20:56] LABS: BASOPHILS % (AUTO) 0.4 % (0-1); EOSINOPHILS % (AUTO) 0.2 % (0-6); HEMOGLOBIN 13.3 g/dl (12.0-16.0); LYMPHOCYTES # (AUTO) 1.3 X10'3 (1.1-4.8); LYMPHOCYTES % (AUTO) 20.9 % (21-51); MEAN CORPUSCULAR HEMOGLOBIN 27.4 PG (27.0-31.0); MEAN CORPUSCULAR HGB CONC 32.5 g/dL (33.0-36.5); MEAN CORPUSCULAR VOLUME 84.4 FL (78-98); MEAN PLATELET VOLUME 11.2 FL (7.4-10.4); MONOCYTES # (AUTO) 0.2 X10'3 (0-0.9); MONOCYTES % (AUTO) 3.6 % (2-12); NEUTROPHILS # (AUTO) 4.8 X10'3 (1.8-7.7); NEUTROPHILS % (AUTO) 74.9 % (42-75); PLATELET COUNT 275 X10'3 (140-440); RED BLOOD COUNT 4.86 X10'6 (4.20-5.60); RED CELL DISTRIBUTION WIDTH 17.4 % (11.5-14.5); WHITE BLOOD COUNT 6.4 X10'3 (4.5-11.0)
[2018-08-12 21:11] LABS: PROTHROMBIN TIME 10.7 SECONDS (9.0-12.0)
[2018-08-12 21:12] LABS: INR 1.1 INR
[2018-08-12 21:14] LABS: LARGE PLATELETS FEW; PLATELET ESTIMATE NORMAL
[2018-08-12] MEDS ORDERED: ondansetron/PF 4mg/2ml inj IV ONE (22:10)
[2018-08-12] MEDS ORDERED: insulin regular, human 10 units/0.1 ml syringe IV ONE (22:10)
[2018-08-12] MEDS ORDERED: morphine 2 MG/ML inj. syringe IV PRN (22:10)
[2018-08-12] MEDS ORDERED: normal saline 1000ML IV soln IVB ONE (22:10)
--- NOTE | 2018-08-12 22:30 | NUR ---
Patient's behavior is hysterical and hyperdramatic. She is difficult to direct and does not seem to want to answer questions. She keep yelling, "I don't feel good. I want to go home." I attempted to reassure the patient which was completely and utterly unsuccessful. Medications provided and hopefully they will help witht help with the patient's condition. Will continue to closely monitor the need for further medications.
[2018-08-12 22:49] LABS: CLARITY,URINE CLEAR (Clear); COLOR,URINE YELLOW (Yellow); GLUCOSE, URINE >=1000 mg/dl (Neg); KETONES,URINE >=80 mg/dl (Neg); LEUKOCYTE ESTERASE ,URINE NEGATIVE (Neg); NITRITES, URINE NEGATIVE (Neg); OCCULT BLOOD,URINE NEGATIVE (Neg); PH,URINE 5.5 (4.8-8.0); PROTEIN,URINE NEGATIVE (Neg); URINE HCG NEGATIVE (NEG); UROBILINOGEN,URINE 0.2 E.U/dL (0.2-1.0)
[2018-08-12 22:54] LABS: UA COLLECTION TYPE NON-SPECIFIED
[2018-08-12 22:58] LABS: URINE AMPHETAMINE SCREEN NEGATIVE (Neg); URINE BARBITUATE SCREEN NEGATIVE (Neg); URINE BENZODIAZEPINES SCREEN NEGATIVE (Neg); URINE CANNABINOID SCREEN POSITIVE (Neg); URINE COCAINE SCREEN NEGATIVE (Neg); URINE METHADONE SCREEN NEGATIVE (Neg); URINE OPIATE SCREEN NEGATIVE (Neg); URINE PHENCYCLIDINE SCREEN NEGATIVE (Neg)
[2018-08-12 23:00] LABS: BACTERIA,URINE FEW /HPF (Neg); RBC,URINE NONE SEEN /HPF (0-2); SQUAMOUS EPITHELIAL CELL,UR MODERATE /LPF (FEW); WBC,URINE 0-4 /HPF (0-4)
--- NOTE | 2018-08-12 23:02 | NUR ---
Patient now resting comfortably in bed. Reports minimal nausea but her vomiting has stopped. She denies any pain at this time.
[2018-08-12] MEDS ORDERED: dicyclomine 10 MG capsule PO ONE (23:05)
[2018-08-12] MEDS ORDERED: normal saline 1000ml 1,000 ML IV ONE (23:20)
[2018-08-13 01:00] LABS: ALANINE AMINOTRANSFERASE 20 U/L (12-78); ALBUMIN 3.4 G/DL (3.4-5.0); ALKALINE PHOSPHATASE 80 IU/L (46-116); ANION GAP 14 (8-16); ASPARTATE AMINO TRANSFERASE 13 U/L (10-37); BILIRUBIN,TOTAL 0.3 MG/DL (0.1-1.0); BLOOD UREA NITROGEN 19 MG/DL (7-18); BUN/CREATININE RATIO 34.5 (6.6-38.0); CALCIUM 7.8 MG/DL (8.5-10.1); CHLORIDE 106 MMOL/L (99-107); CREATININE 0.55 MG/DL (0.40-0.90); GLUCOSE 226 MG/DL (70-104); POTASSIUM 3.5 MMOL/L (3.5-5.1); SODIUM 142 MMOL/L (135-145); TOTAL CARBON DIOXIDE 22.3 MMOL/L (24-32); TOTAL PROTEIN 6.9 G/DL (6.4-8.2); eGFR > 90 ML/MIN
[2018-08-13] MEDS ORDERED: magnesium oxide 400mg tablet PO ONE (01:15)
[2018-08-13] MEDS ORDERED: potassium Cl 20 mEq SR tablet PO ONE (01:15)
[2018-08-13] MEDS ORDERED: insulin regular, human 10 units/0.1 ml syringe SQ ONE (01:15)
[2018-08-13 01:38] VITALS: BP 106/49
== END 2018-08-13 01:39 | disposition home or self-care (01) ==
LOC: ER 19:19
DX: E10.10 Type 1 diabetes mellitus with ketoacidosis without coma (principal); E10.65 Type 1 diabetes mellitus with hyperglycemia; F12.90 Cannabis use, unspecified, uncomplicated; Z98.51 Tubal ligation status; Z98.890 Other specified postprocedural states; Z88.0 Allergy status to penicillin; Z79.2 Long term (current) use of antibiotics; Z79.899 Other long term (current) drug therapy
CPT/HCPCS: 36415; 80053; 80305; 80320; 81001; 81025; 82948; 83690; 85025; 85610; 93005; 96361; 96372; 96374; 96375; 99284; J1815; J2270; J2405; J7030

== ENCOUNTER 2018-10-21 21:22 | Emergency (ER) | payer MEDICARE, MEDICAID ==
[~2018-10-21] VITALS: Ht 167.6 cm; Wt 90.8 kg
[2018-10-21] MEDS ORDERED: ONDA4TAB6 PO (22:17)
[2018-10-21] MEDS ORDERED: HYDR-4353 PO (22:17)
[2018-10-21] MEDS ORDERED: ondansetron 4mg rapidly disintigrating tab PO ONE (22:45)
[2018-10-21] MEDS ORDERED: HYDROcodone/acetaminophen 10/325mg tab PO ONE (22:45)
[2018-10-21 22:57] VITALS: BP 139/96
== END 2018-10-21 23:03 | disposition home or self-care (01) ==
LOC: ER 21:22
DX: S92.512A Displaced fracture of proximal phalanx of left lesser toe(s), initial encounter for closed fracture (principal); E11.9 Type 2 diabetes mellitus without complications; F12.90 Cannabis use, unspecified, uncomplicated; Z98.890 Other specified postprocedural states; Z98.51 Tubal ligation status; Z88.0 Allergy status to penicillin; Z79.899 Other long term (current) drug therapy; Z79.4 Long term (current) use of insulin; W22.03XA Walked into furniture, initial encounter; Y93.01 Activity, walking, marching and hiking; Y92.89 Other specified places as the place of occurrence of the external cause; Y99.9 Unspecified external cause status
CPT/HCPCS: 73630; 73660; 99283